=== PATIENT | male | born 1985 | race Caucasian/White ===

== ENCOUNTER 2016-10-31 12:50 | Emergency (ER) | payer SELFPAY ==
[~2016-10-31] VITALS: Ht 180.3 cm; Wt 135.2 kg
[2016-10-31] MEDS ORDERED: LISINOPRIL AND1 TAB PO (13:03)
[2016-10-31] MEDS ORDERED: LISINOPRIL10 M1 PO (13:03)
[2016-10-31] MEDS ORDERED: CLINDAMYCIN HC300 MG PO (13:28)
[2016-10-31] MEDS ORDERED: NAPROSYN500 MG PO (13:28)
== END 2016-10-31 13:35 | disposition home or self-care (01) ==
LOC: ED 12:50
DX: K08.89 Other specified disorders of teeth and supporting structures (principal)

== ENCOUNTER 2018-11-29 16:49 | Emergency (ER) | payer OTHER ==
[~2018-11-29] VITALS: Ht 154.9 cm; Wt 117.9 kg
[~2018-11-29 16:49] MED LIST: CLINDAMYCIN HC300 MG PO; LISINOPRIL AND1 TAB PO; LISINOPRIL10 M1 PO; NAPROSYN500 MG PO
[2018-11-29] MEDS ORDERED: AUGMENTIN 875-875 MG PO (17:44)
== END 2018-11-29 18:05 | disposition home or self-care (01) ==
LOC: ED 16:49
DX: K04.7 Periapical abscess without sinus (principal); Z79.899 Other long term (current) drug therapy